=== PATIENT | female | born 1975 | race Caucasian/White ===

== ENCOUNTER → 2017-12-04 | Outpatient (CLI) | payer BC ==
--- NOTE | 2017-12-04 19:11 | CT ---
EXAMINATION TYPE: CT brain wo/w con DATE OF EXAM: 12/04/2017 COMPARISON: HISTORY: Migranes x8 months CT DLP: 2112 mGycm Automated exposure control for dose reduction was used. CONTRAST: Performed without and with IV Contrast, patient injected with 100 mL of Isovue 300. FINDINGS: The ventricles and sulci appear normal. There is no mass effect nor midline shift. There is no eviden ce of cerebral edema. Calvarium is intact. There is no pathologic enhancement. IMPRESSION: NORMAL HEAD CT SCAN.
== END ==
LOC: RADCTMAIN 18:15
PROVIDERS: ATTEND Family Medicine
DX: G43.909 Migraine, unspecified, not intractable, without status migrainosus (principal)
CPT/HCPCS: 70470; Q9967

== ENCOUNTER → 2019-03-16 | Outpatient (CLI) | payer BC ==
--- NOTE | 2019-03-16 16:14 | XR ---
EXAMINATION TYPE: XR foot complete RT DATE OF EXAM: 03/16/2019 CLINICAL HISTORY: Right foot pain of the first through third metatarsal with no known injury TECHNIQUE: Frontal, lateral, and oblique images of the right foot are obtained. COMPARISON: None FINDINGS: There is no acute fracture/dislocation evident in the right foot. Silva's toe is inciden tally noted. Small plantar heel spur is present. The joint spaces in the right foot appear within nor mal limits. The overlying soft tissue appears unremarkable. IMPRESSION: There is no acute fracture or dislocation in the right foot. If there is persistent pain MRI could evaluate for subtle radiographic occult stress fracture given the location of the patient' s pain.
== END | disposition home or self-care (01) ==
LOC: RADXRMAIN 15:53
PROVIDERS: ATTEND Family Medicine
DX: M79.671 Pain in right foot (principal)